=== PATIENT | male | born 1960 | race Caucasian/White ===

== ENCOUNTER 2017-12-03 21:33 | Observation (INO) ==
[2017-12-03] MEDS ORDERED: Naloxone 0.4 MG/ML INJ IVP PRN (23:41)
[2017-12-03] MEDS ORDERED: Ibuprofen 400 MG TABLET PO PRN (23:41)
[2017-12-03] MEDS ORDERED: Isovue-370 500 ML INFUS..BTL IV ONE (23:42)
[2017-12-03] MEDS ORDERED: OXYCODONE Oral CONC 10 MG/0.5 ML ORAL.SYG SL PRN (23:44)
[2017-12-03] MEDS ORDERED: Ketorolac 30 MG/ML VIAL IVP ONE (23:44)
[2017-12-04] MEDS ORDERED: levETIRAcetam 750 MG in 0.9 % Sodium Chloride 100 ML IVPB ONE (00:13)
--- NOTE | 2017-12-04 00:13 | Internal Med History&Physical ---
Addendum entered and electronically signed by Tani Burton DO 12/04/17 00: 57: Addendum to A/P At this time not highly suspicious of SBP considering patient is afebrile and has no leukocytosis. Based on imaging, may consider paracentesis with IR, and empiric antibiotics if needed. Original Note: <Tani Burton - Last Filed: 12/04/17 00:16> Date of Encounter: 12/04/17 Time of Encounter: 23:45 Internal Medicine - H&P: HPI Chief complaint: Abdominal pain Admitted From: Emergency Dept ([facility]) Plans for Post Hospital Care: Home History of present illness: Mr. Nunez is a 57 year old male with history of hepatitis C, COPD, GERD, hyperlipidemia, hypertension, migraines and seizures who presented to [place] ED complaining of right upper quadrant pain of a couple of weeks' duration. He says that this pain initially started a couple of weeks back following a day where he drank a significant amount of alcohol. He does have a history of alcoholism as well as substantial drug use including IV drug use, however he apparently stopped drinking for the most part 3-4 months back. He says that couple of weeks ago he had one episode where he drink a substantial amount of alcohol and since that time he has been developing substantially worsening abdominal pain and swelling. He was seen initially in the ER approximately 2 days ago and at that time he had an abdominal CT which did not demonstrate any ascites or intra-abdominal abnormalities, however was noncontrast at that time. The patient has apparently had significantly worsening abdominal pain which is primarily the worst in the right upper quadrant with radiation towards the back. The pain is 8-9 out of 10 in intensity and is constant. It is associated with nausea however there is no vomiting. He has had some chills and some sweats, however denies any documented fevers to his knowledge. The patient has been able to eat and hold food down. He denies any changes in the color of his skin, itching, changes in mental status. He does admit to substantial swelling in his abdomen with appearance of stretch olivarez which happened today. Nothing seems to make this pain any better. Past Med Surg Social Fam HX - Past Medical History Medical history: arthritis, COPD, GERD, hyperlipidemia, hypertension, liver disease, migraine, seizures, other Additional medical history: HEP C Psychiatric history: anxiety, depression, panic disorder - Past Surgical History Surgical History: orthopedic, other (Right shoulder replacement), other (Throat surgery) Additional surgical history: Rt Shoulder - Social History Smoking Status: Current every day smoker Packs per day: 1/ Smokeless Tobacco Status: No Alcohol use: occasionally Drug use: none Internal Medicine - H&P: Meds FLUoxetine HCl [Prozac] 60 mg PO DAILY 11/26/14 [History] LevETIRAcetam [Keppra] 750 mg PO BID 11/26/14 [History] Lisinopril [Zestril] 20 mg PO DAILY 11/26/14 [History] Propranolol HCl 20 mg PO TID 11/26/14 [History] diazePAM [Valium] 5 mg PO DAILY 06/23/15 [History] Albuterol Neb [Proventil Neb] 2.5 mg IH Q6H #1 vial.neb 02/20/17 [Rx] Lactulose 20 gm PO TID #2700 ml 12/01/17 [Rx] Mirtazapine [Remeron] 30 mg PO HS 12/01/17 [History] Oxycodone HCl 5 mg PO QID PRN 3 Days #12 tablet 12/01/17 [Rx] 3 Allergy/AdvReac Type Severity Reaction Status Date / Time Penicillins AdvReac Difficulty Verified 02/20/17 22:54 Breathing tramadol AdvReac Seizure Verified 02/20/17 22:54 All Systems PM: A 10-system review of systems was performed and is negative for pertinent findings except as documented above in the HPI. Review of systems: Constitutional: Denies fevers, chills, weight loss, generalized fatigue Head/Neck: Denies LYNN, neck stiffness EENT: Denies vision changes/blurriness, rhinorrhea, congestion, sore throat CVS: Denies chest pain, palpitations, BELLO, orthopnea, edema, PND Pulm: Denies SOB, cough, sputum, hemoptysis, wheezing GI: Admits to abdominal pain, worse in the right upper quadrant. Admits to nausea, abdominal distention. Denies vomiting, constipation, diarrhea, hematochezia, melena. : Denies dysuria, increased frequency, urgency, hematuria Heme: Denies ease of bleeding or bruising MSK: Denies joint pain, limited ROM Skin: Denies rashes, ulcers, color changes Neuro: Denies LYNN, paresthesias, focal deficits, ataxia - Constitutional Exam: Gen: Vitals noted. No acute distress. AAOx3 HEENT: Normocephalic, atraumatic. No scleral icterus Neck: Supple. No adenopathy. Cardiac: RRR, no murmur, +S1/S2 Pulmonary: CTA bilaterally, no wheezes, rales or rhonchi, equal chest expansion Abdomen: Markedly distended, tender to palpation diffusely, however most notably tender in right upper quadrant. No fluid wave noted. Guarding noted on exam Skin: Erythematous striae noted on abdomen which patient says are new. No jaundice Extremities: no BLE edema, nontender calf, no cyanosis or clubbing Neuro: moves all extremities, no focal deficits Psych: Appropriate mood and behavior - Assessment and plan (1) Abdominal pain Current Visit: Yes Status: Acute Assessment and plan: Severe right upper quadrant abdominal pain, acute Patient had abdominal CT without contrast 2 days ago There is firm distended abdomen on exam, no repeat imaging at this time Patient states this started after drinking large amounts of alcohol several weeks ago Suspected alcoholic hepatitis could be possible cause vs pancreatitis vs gb pathology CT Abdomen pelvis with contrast, right upper quadrant US If there is substantial ascites present, plan for IR consult for paracentesis in the AM Control pain with SL oxycodone Control nausea with zofran NPO Qualifiers: Abdominal location: right upper quadrant Qualified Code(s): R10.11 - Right upper quadrant pain (2) Hepatitis Current Visit: Yes Status: Suspected Assessment and plan: Hepatitis, suspect acute on chronic Patient has recent history of excessive alcohol intake, which initiated pain LFTs are currently normal, INR and Albumin are also normal indicating normal liver function There was no evidence of cirrhosis on last CT We will repeat imaging and re-evaulate (3) Seizure disorder Current Visit: No Status: Chronic Assessment and plan: History of seizures, on keppra Will continue IV as patient is NPO Additionally, patient will be placed on CIWA protocol (4) Alcohol abuse Current Visit: Yes Status: Chronic Assessment and plan: History of alcohol abuse Patient states that it has been weeks, however his story is not totally consistent Additionally, he has a history of seizure disorder for which he takes keppra I will place the patient on a CIWA protocol (5) Hepatitis C Current Visit: Yes Status: Chronic Assessment and plan: history of chronic hepatitis C Qualifiers: Viral hepatitis chronicity: chronic Hepatic coma status: without hepatic coma Qualified Code(s): B18.2 - Chronic viral hepatitis C (6) Hypertension Current Visit: No Status: Acute Assessment and plan: History of hypertension Will monitor at this time PO meds held at this time, PRN IV meds ordered Qualifiers: Hypertension type: essential hypertension Qualified Code(s): I10 - Essential (primary) hypertension (7) DVT prophylaxis Current Visit: Yes Status: Acute Assessment and plan: SQ Heparin - Time Spent With Patient Total time spent is greater than 50% in coordination of care (as documented) at patient's floor/unit and/or counseling patient: <Hanh Flores - Last Filed: 12/04/17 01:04> Date of Encounter: 12/03/17 Internal Medicine - H&P: HPI History of present illness: Mr. Nunez is a 57 year old male All Systems PM: A 10-system review of systems was performed and is negative for pertinent findings except as documented above in the HPI. - Assessment and plan (1) Hypertension Current Visit: No Status: Acute Qualifiers: Hypertension type: essential hypertension Qualified Code(s): I10 - Essential (primary) hypertension (2) Hepatitis Current Visit: Yes Status: Suspected (3) Abdominal pain Current Visit: Yes Status: Acute Qualifiers: Abdominal location: right upper quadrant Qualified Code(s): R10.11 - Right upper quadrant pain (4) Seizure disorder Current Visit: No Status: Chronic (5) Alcohol abuse Current Visit: Yes Status: Chronic (6) Hepatitis C Current Visit: Yes Status: Chronic Qualifiers: Viral hepatitis chronicity: chronic Hepatic coma status: without hepatic coma Qualified Code(s): B18.2 - Chronic viral hepatitis C (7) DVT prophylaxis Current Visit: Yes Status: Acute - Time Spent With Patient Total time spent is greater than 50% in coordination of care (as documented) at patient's floor/unit and/or counseling patient: - Attending Attestation Patient seen on 12/03/17 Niels Nunez is a 57 year old man with multiple comorbidities that includes arthritis, COPD, GERD, hyperlipidemia, hypertension, hepatitis C associated liver disease who comes here on transfer from [place] emergency room where he went to for the second time in the last 2 days with a complaint of abdominal pain and distention. On his initial encounter a CT scan was done to assess for ascites however it was completely negative with no organic abnormalities found. He presented again today stating that his distention had notably worse and an abdominal pain was excruciating during IV fentanyl administration in the emergency room. It is reported that CT capabilities are not possible there today and therefore is transferred here for ongoing evaluation in the setting of intractable abdominal pain of unclear etiology. He stated that he feels his abdomen is now very tight and has developed new stretch olivarez from the distention accompanied by some feeling of nausea and chills. Of note he takes lactulose at home chronically. He was afebrile in the emergency room and lab work done was grossly unremarkable both today and 2 days ago with the normal serum lipase, stable creatinine and minimal elevation in ALT. On presentation here he seemed to be clinically and hemodynamically stable. Family members at bedside confirms that he has a history of substance use disorder which is now in the past but ongoing problems with alcohol in addition to hepatitis C. They state that he was sober for 3 months however he now relapsed into alcohol 2 weeks ago after which this problem with abdominal pain started but has progressively worsened in the last couple of days. They equally confirm that the abdominal stretch olivarez and distention is new but state that he has not been on chronic lactulose and it was only started 2 days ago with his prior visit to the emergency room. He confirms that his urine is darker in color but he denies dysuria. He is able to pass gas and moving his bowels without diarrhea. He also complains of nausea but no vomiting and occasional night sweats and chills but no confirmed fever. Physical exam remarkable for well-developed male lying in bed with mild discomfort, chest clear to auscultation, abdomen notably distended with red striae over the anterior wall, tympanic to percussion and diffusely tender to palpation lumbar predominantly in the epigastrium and right upper quadrant with no peritoneal reaction. No shifting dullness. No asterixis. No peripheral edema. We will admit for intractable abdominal pain of unclear etiology; concern for alcoholic hepatitis given the history that it started after his last alcohol binge. Discriminant factor not positive. Pancreatitis unlikely given the normal lipase and no apparent peripancreatic inflammatory findings on CT. Acute hep A ruled out with the nonreactive IgM done 2 days ago. His LFTs are not significantly elevated however with normal INR, ammonia and albumin showing that the synthetic function of the liver remains intact. We will obtain a contrast enhanced CT imaging of his abdomen to rule out any inflammatory findings. He will also benefit from a dedicated liver ultrasound to assess for perihepatic edema. Should be plugged in with hepatology as an outpatient for treatment of chronic hep C.
[2017-12-04] MEDS ORDERED: *HR* LORazepam 2 MG/ML VIAL IVP PRN ×3 (00:18)
[2017-12-04] MEDS ORDERED: Ondansetron 4 MG/2 ML VIAL IVP PRN (00:38)
[2017-12-04 04:21] LABS: Basophils # 0.1 K/mcL (0.0-0.2); Basophils % 0.8 %; Eosinophils # 0.4 K/mcL (0.0-0.6); Eosinophils % 4.8 %; Hemoglobin 15.2 g/dL (12.9-16.9); Immature Granulocytes % 0.3 % (0-4); Lymphocytes # 3.7 K/mcL (0.6-4.6); Lymphocytes % 46.7 %; Mean Corpuscular HGB Conc 35.3 g/dL (31.6-35.5); Mean Corpuscular Hemoglobin 32.5 pg (28.0-33.3); Mean Corpuscular Volume 92.1 fL (83.0-100.0); Mean Platelet Volume 9.2 fL (9.4-12.4); Monocytes # 1.1 K/mcL (0.0-1.3); Monocytes % 13.2 %; Neutrophils # 2.7 K/mcL (1.6-8.9); Platelet Count 198 K/mcL (140-400); Red Blood Count 4.67 M/mcL (4.19-5.50); Red Cell Distribution Width 12.8 % (11.5-14.5); Segmented Neutrophils % 34.2 %
[2017-12-04 04:37] LABS: Alanine Aminotransferase 54 Units/L (7-52); Albumin 3.9 g/dL (3.5-5.7); Albumin/Globulin Ratio 1.7 (1.1-2.2); Alkaline Phosphatase 95 Units/L (34-104); Aspartate Amino Transferase 31 Units/L (13-39); BUN/Creatinine Ratio 20 (6-26); Bilirubin,Total 0.6 mg/dL (0.3-1.0); Blood Urea Nitrogen 21 mg/dL (6-20); Calcium 8.9 mg/dL (8.6-10.3); Carbon Dioxide 27 mEq/L (23-29); Chloride 100 mEq/L (98-107); Globulin 2.3 g/dL (2.4-3.5); Glucose 92 mg/dL (70-105); Magnesium 1.9 mg/dL (1.6-2.6); Osmolality,Calculated 277 (280-300); Sodium 132 mEq/L (136-145); Total Protein 6.2 g/dL (6.4-8.9); eGFR For Non-African Americans > 60 (> 60)
[2017-12-04] MEDS ORDERED: *HR* Heparin 5,000 UNIT/ML VIAL SQ SCH (06:00)
[2017-12-04] MEDS ORDERED: levETIRAcetam 250 MG TABLET PO SCH ×2 (06:00→11:45)
[2017-12-04] MEDS ORDERED: *HR* Morphine 2 MG/ML SYRINGE IVP PRN (08:09)
[2017-12-04] MEDS ORDERED: Folic Acid 1 MG TABLET PO SCH (09:00)
[2017-12-04] MEDS ORDERED: Thiamine (B-1) 100 MG TABLET PO SCH (09:00)
[2017-12-04] MEDS ORDERED: Multivit/Ca/Min/Fe/FA 1 TAB TABLET PO SCH (09:00)
--- NOTE | 2017-12-04 09:08 | Internal Med Progress Note ---
Hospitalist Progress Note - Encounter Date of Encounter: 12/04/17 Time of Encounter: 09:00 - Exam Vitals: Temp Pulse Resp BP Pulse Ox 97.7 F 60 16 104/67 97 12/04/17 07:10 12/04/17 07:10 12/04/17 07:10 12/04/17 07:10 12/04/17 07:10 Exam: Gen: Vitals noted. No acute distress. AAOx3 HEENT: Normocephalic, atraumatic. No scleral icterus Neck: Supple. No adenopathy. Cardiac: RRR, no murmur, +S1/S2 Pulmonary: CTA bilaterally, no wheezes, rales or rhonchi, equal chest expansion Abdomen: Markedly distended, tender to palpation diffusely, however most notably tender in right upper quadrant. No fluid wave noted. Guarding noted on exam Skin: Erythematous striae noted on abdomen which patient says are new. No jaundice Extremities: no BLE edema, nontender calf, no cyanosis or clubbing Neuro: moves all extremities, no focal deficits Psych: Appropriate mood and behavior - Assessment and Plan (1) Abdominal pain Status: Acute Assessment and Plan: Resolving. CT and abd ultrasound came back WNL (2) Hypertension Status: Acute Assessment and Plan: History of hypertension Will monitor at this time PO meds held at this time, PRN IV meds ordered (3) Hepatitis Status: Suspected Assessment and Plan: Hepatitis, suspect acute on chronic Patient has recent history of excessive alcohol intake, which initiated pain LFTs are currently normal, INR and Albumin are also normal indicating normal liver function There was no evidence of cirrhosis on last CT We will repeat imaging and re-evaulate (4) Seizure disorder Status: Chronic Assessment and Plan: History of seizures, on keppra Will continue IV as patient is NPO Additionally, patient will be placed on CIWA protocol (5) Alcohol abuse Status: Chronic Assessment and Plan: History of alcohol abuse Patient states that it has been weeks, however his story is not totally consistent Additionally, he has a history of seizure disorder for which he takes keppra I will place the patient on a CIWA protocol (6) Hepatitis C Status: Chronic Assessment and Plan: history of chronic hepatitis C (7) DVT prophylaxis Status: Acute Assessment and Plan: SQ Heparin - Time Spent with Patient Total time spent is greater than 50% in coordination of care (as documented) at patient's floor/unit and/or counseling patient: Internal Medicine: Result - Labs CBC & Chem 7: 12/04/17 04:01 12/04/17 04:01 Labs: Short CBC 12/04/17 Range/Units 04:01 WBC 7.9 (4.3-11.1) K/mcL Hgb 15.2 (12.9-16.9) g/dL Hct 43.0 (37.5-50.1) % Plt Count 198 (140-400) K/mcL Neutrophils # 2.7 (1.6-8.9) K/mcL BMP 12/04/17 04:01 Sodium 132 L Potassium 4.0 Chloride 100 Carbon Dioxide 27 BUN 21 H Creatinine 1.03 Glucose 92 Calcium 8.9 Liver Function 12/04/17 Range/Units 04:01 Total Bilirubin 0.6 (0.3-1.0) mg/dL AST 31 (13-39) Units/L ALT 54 H (7-52) Units/L Alkaline Phosphatase 95 (34-104) Units/L Albumin 3.9 (3.5-5.7) g/dL - Impressions Impressions Abdomen/Pelvis CT 12/04/17 02:00 IMPRESSION: No acute findings in the abdomen or pelvis. D/ 12/04/2017 07:17:20 Awilda Franco MD / franky Interpreting Provider: Awilda Franco MD Consult Discharge Plan - Plan Referrals: Awilda Hewitt, [place] [Primary Care Provider] - (1) Abdominal pain Qualifiers: Abdominal location: right upper quadrant Qualified Code(s): R10.11 - Right upper quadrant pain (2) Hypertension Qualifiers: Hypertension type: essential hypertension Qualified Code(s): I10 - Essential (primary) hypertension (6) Hepatitis C Qualifiers: Viral hepatitis chronicity: chronic Hepatic coma status: without hepatic coma Qualified Code(s): B18.2 - Chronic viral hepatitis C
[2017-12-04 10:07] LABS: Amphetamine Screen,Urine Negative ng/mL (Cutoff=1000); Barbiturate Screen,Urine Negative ng/mL (Cutoff=200); Benzodiazepines Screen,Urine Positive ng/mL (Cutoff=200); Cannabinoid Screen,Urine Negative ng/mL (Cutoff = 50); Cocaine Screen,Urine Negative ng/mL (Cutoff= 300); Opiate Screen,Urine Positive ng/mL (Cutoff=300); Phencyclidine Screen,Urine Negative ng/mL (Cutoff=25)
[2017-12-04 10:44] VITALS: BP 106/67
--- NOTE | 2017-12-04 11:57 | Discharge Summary ---
Date of Encounter: 12/04/17 Time of Encounter: 11:55 - Discharge Diagnosis (1) Abdominal pain Priority: Primary Status: Acute Assessment and Plan: 57 year old male with history of hepatitis C, COPD, GERD, hyperlipidemia, hypertension, migraines and seizures who presented to [place] ED complaining of right upper quadrant pain of a couple of weeks' duration. He says that this pain initially started a couple of weeks back following a day where he drank a significant amount of alcohol. He does have a history of alcoholism as well as substantial drug use including IV drug use, however he apparently stopped drinking for the most part 3-4 months back. Severe right upper quadrant abdominal pain, acute after one day of excessive alcohol consumption Patient had abdominal CT without contrast 2 days ago that showed no acute abnormalities. He came back with abdominal distention and abdominal pain. he ahd a CT abdomen and ultrasound that came back within normal limits. His common bile duct was however slightly widened in diameter at 8mm. Discussed with GI,no acute intervention. Outpatient follow up. Alk phos was within normal limits and his other LFTs were WNL. He was discharged in a stable condition. Counseled to stop drinking alcohol Qualifiers: Abdominal location: right upper quadrant Qualified Code(s): R10.11 - Right upper quadrant pain (2) Hypertension Priority: Primary Status: Acute Qualifiers: Hypertension type: essential hypertension Qualified Code(s): I10 - Essential (primary) hypertension (3) Hepatitis Priority: Secondary Status: Suspected (4) Seizure disorder Priority: Secondary Status: Chronic (5) Alcohol abuse Priority: Secondary Status: Chronic (6) Hepatitis C Priority: Secondary Status: Chronic Qualifiers: Viral hepatitis chronicity: chronic Hepatic coma status: without hepatic coma Qualified Code(s): B18.2 - Chronic viral hepatitis C (7) DVT prophylaxis Priority: Secondary Status: Acute Hospital course: Mr. Nunez is a 57 year old male - Time Spent with Patient Total time spent providing and/or coordinating discharge services: - Discharge Medications Home Medications: FLUoxetine HCl [Prozac] 60 mg PO DAILY 11/26/14 [History] LevETIRAcetam [Keppra] 750 mg PO BID 11/26/14 [History] Propranolol HCl 20 mg PO TID 11/26/14 [History] diazePAM [Valium] 5 mg PO DAILY 06/23/15 [History] Lactulose 20 gm PO TID #2700 ml 12/01/17 [Rx] Mirtazapine [Remeron] 30 mg PO HS 12/01/17 [History] Oxycodone HCl 5 mg PO QID PRN 3 Days #12 tablet 12/01/17 [Rx] Ibuprofen [Ibu] 600 mg PO TID PRN 12/04/17 [History] Lisinopril-HCTZ 20-12.5 [Prinzide 20-12.5] 1 tab PO DAILY 12/04/17 [History] Allergies/Adverse Reactions: 3 Allergy/AdvReac Type Severity Reaction Status Date / Time Penicillins AdvReac Difficulty Verified 02/20/17 22:54 Breathing tramadol AdvReac Seizure Verified 02/20/17 22:54 Date of admission: 12/03/17 22:54 Primary care physician: Awilda Hewitt - Constitutional Vitals: Temp Pulse Resp BP Pulse Ox 97.7 F 64 16 106/67 98 12/04/17 10:42 12/04/17 10:42 12/04/17 10:42 12/04/17 10:42 12/04/17 10:42 Exam: Gen: Vitals noted. No acute distress. AAOx3 HEENT: Normocephalic, atraumatic. No scleral icterus Neck: Supple. No adenopathy. Cardiac: RRR, no murmur, +S1/S2 Pulmonary: CTA bilaterally, no wheezes, rales or rhonchi, equal chest expansion Abdomen: Markedly distended, tender to palpation diffusely, however most notably tender in right upper quadrant. No fluid wave noted. Guarding noted on exam Skin: Erythematous striae noted on abdomen which patient says are new. No jaundice Extremities: no BLE edema, nontender calf, no cyanosis or clubbing Neuro: moves all extremities, no focal deficits Psych: Appropriate mood and behavior - Patient Status Disposition: Home, Self-Care Condition: Good - Discharge Instructions Follow Up With: Awilda Hewitt, [facility] [Primary Care Provider] -
[2017-12-04] MEDS ORDERED: Thiamine (B-1) 100 MG, Folic Acid 1 MG, MVI, adult with vitamin K 10 ML in 0.9 % Sodi... IVPB SCH (18:00)
[2017-12-04] MEDS ORDERED: Mirtazapine 15 MG TABLET PO SCH (21:00)
[2017-12-05] MEDS ORDERED: FLUoxetine 20 MG CAPSULE PO SCH (09:00)
[2017-12-05] MEDS ORDERED: Lisinopril-HCTZ 20-12.5mg TABLET PO SCH (09:00)
== END 2017-12-04 12:54 | disposition home or self-care (01) ==
LOC: 3ANU
PROVIDERS: ADMIT Internal Medicine; ATTEND Internal Medicine

== ENCOUNTER 2020-08-31 16:37 | Inpatient (IN) ==
[2020-08-31] MEDS ORDERED: *HR* FentaNYL (PF) 100 MCG/2 ML VIAL IVP ONE ×2 (17:51→20:23)
[2020-08-31 18:19] LABS: Basophils % 0.4 %; Eosinophils # 0.2 K/mcL (0.0-0.6); Eosinophils % 2.6 %; Hematocrit 38.1 % (37.5-50.1); Hemoglobin 13.5 g/dL (12.9-16.9); Immature Granulocytes % 0.7 % (0-4); Mean Corpuscular HGB Conc 35.4 g/dL (31.6-35.5); Mean Corpuscular Volume 87.4 fL (83.0-100.0); Mean Platelet Volume 8.4 fL (9.4-12.4); Monocytes # 0.7 K/mcL (0.0-1.3); Monocytes % 7.6 %; Neutrophils # 5.9 K/mcL (1.6-8.9); Platelet Count 514 K/mcL (140-400); Red Blood Count 4.36 M/mcL (4.19-5.50); Red Cell Distribution Width 12.8 % (11.5-14.5); Segmented Neutrophils % 66.7 %; White Blood Count 8.9 K/mcL (4.3-11.1)
[2020-08-31 18:37] LABS: Bilirubin,Urine Negative (Negative); Blood,Urine Negative (Negative); Clarity,Urine Clear (Clear); Color,Urine Light-Yellow (Yellow); Glucose,Urine (UA) Normal (Normal); Ketones,Urine Negative (Negative); Leukocyte Esterase,Urine Negative (Negative); Nitrite,Urine Negative (Negative); Protein,Urine Negative (Neg-Trace); Specific Gravity,Urine 1.013 (1.010-1.025); Urobilinogen,Urine Normal (Normal)
[2020-08-31 18:59] LABS: BUN/Creatinine Ratio 14 (6-26); Blood Urea Nitrogen 10 mg/dL (8-23); C-Reactive Protein 30 mg/L (Less than 10); Calcium 9.1 mg/dL (8.6-10.3); Carbon Dioxide 21 mEq/L (23-29); Chloride 98 mEq/L (98-107); Glucose 98 mg/dL (70-105); Magnesium 1.7 mg/dL (1.6-2.6); Osmolality,Calculated 271 (280-300); Phosphorous 2.9 mg/dL (2.7-4.5); Potassium 3.6 mEq/L (3.5-5.1); Sodium 131 mEq/L (136-145); eGFR For African Americans > 60 (> 60); eGFR For Non-African Americans > 60 (> 60)
[2020-08-31] MEDS ORDERED: Ondansetron 4 MG/2 ML VIAL IVP ONE (20:23)
[2020-08-31] MEDS ORDERED: Vancomycin 1,750 MG/517.5 ML IV.SOLN IVPB ONE (22:17)
[2020-08-31 22:36] LABS: Source,Synovial Fluid RIGHT SHOULDER
[2020-08-31 22:39] LABS: Appearance,Synovial Fluid Cloudy (Clear-Hazy); Color,Synovial Fluid Straw (Straw)
[2020-08-31] MEDS ORDERED: Cefepime HCl 2,000 MG in 0.9 % Sodium Chloride Mini Bag 100 ML IVPB ONE (22:45)
[2020-08-31 23:36] LABS: Lymphocytes,Synovial Fluid 0 %
[2020-09-01] MEDS ORDERED: Ondansetron 4 MG/2 ML VIAL IVP PRN (00:29)
[2020-09-01] MEDS ORDERED: Naloxone 0.4 MG/ML INJ IVP PRN (00:29)
[2020-09-01] MEDS ORDERED: Melatonin 3 MG TABLET PO PRN (00:29)
[2020-09-01] MEDS ORDERED: Acetaminophen 325 MG TABLET PO PRN (00:29)
[2020-09-01 04:04] LABS: Basophils % 0.5 %; Eosinophils # 0.2 K/mcL (0.0-0.6); Eosinophils % 2.6 %; Hematocrit 36.5 % (37.5-50.1); Hemoglobin 12.6 g/dL (12.9-16.9); Immature Granulocytes % 0.6 % (0-4); Lymphocytes # 1.9 K/mcL (0.6-4.6); Lymphocytes % 22.5 %; Mean Corpuscular HGB Conc 34.5 g/dL (31.6-35.5); Mean Corpuscular Volume 86.9 fL (83.0-100.0); Mean Platelet Volume 8.1 fL (9.4-12.4); Monocytes # 0.7 K/mcL (0.0-1.3); Monocytes % 8.6 %; Neutrophils # 5.6 K/mcL (1.6-8.9); Platelet Count 462 K/mcL (140-400); Red Cell Distribution Width 12.9 % (11.5-14.5); Segmented Neutrophils % 65.2 %; White Blood Count 8.6 K/mcL (4.3-11.1)
[2020-09-01 04:15] LABS: Activated Partial Thrombo Time 32.1 Seconds (26.0-36.0); INR 1.2; Prothrombin Time 13.8 Seconds (9.4-12.1)
[2020-09-01 04:26] LABS: Alanine Aminotransferase 21 Units/L (7-52); Albumin 3.6 g/dL (3.5-5.7); Albumin/Globulin Ratio 1.2 (1.1-2.2); Alkaline Phosphatase 90 Units/L (34-104); Aspartate Amino Transferase 17 Units/L (13-39); BUN/Creatinine Ratio 11 (6-26); Bilirubin,Total 0.4 mg/dL (0.3-1.0); Blood Urea Nitrogen 9 mg/dL (8-23); Calcium 9.1 mg/dL (8.6-10.3); Carbon Dioxide 25 mEq/L (23-29); Chloride 101 mEq/L (98-107); Globulin 3.1 g/dL (2.4-3.5); Glucose 104 mg/dL (70-105); Osmolality,Calculated 273 (280-300); Phosphorous 3.1 mg/dL (2.7-4.5); Potassium 3.8 mEq/L (3.5-5.1); Sodium 132 mEq/L (136-145); Total Protein 6.7 g/dL (6.4-8.9); eGFR For African Americans > 60 (> 60); eGFR For Non-African Americans > 60 (> 60)
[2020-09-01] MEDS: Cefepime HCl 2,000 MG in Water for inj. (sterile) 20 ML IVP SCH ×2 (08:59→22:13)
[2020-09-01] MEDS: Vancomycin 1,250 MG/262.5 ML IV.SOLN IVPB SCH ×2 (11:49→22:15)
[2020-09-01] MEDS: levETIRAcetam 250 MG TABLET PO SCH (22:14)
[2020-09-02] MEDS ORDERED: Albuterol 2.5 MG/3 ML NEBULIZER IH PRN ×2 (03:05→15:35)
[2020-09-02] MEDS ORDERED: Ondansetron ODT 4 MG TAB.RAPDIS PO PRN (03:05)
[2020-09-02 04:49] LABS: Basophils % 0.6 %; Eosinophils # 0.2 K/mcL (0.0-0.6); Eosinophils % 2.6 %; Hematocrit 36.1 % (37.5-50.1); Hemoglobin 12.4 g/dL (12.9-16.9); Immature Granulocytes % 0.6 % (0-4); Lymphocytes # 1.7 K/mcL (0.6-4.6); Lymphocytes % 24.1 %; Mean Corpuscular HGB Conc 34.3 g/dL (31.6-35.5); Mean Corpuscular Hemoglobin 29.8 pg (28.0-33.3); Mean Corpuscular Volume 86.8 fL (83.0-100.0); Mean Platelet Volume 8.2 fL (9.4-12.4); Monocytes # 0.9 K/mcL (0.0-1.3); Monocytes % 12.5 %; Neutrophils # 4.2 K/mcL (1.6-8.9); Platelet Count 440 K/mcL (140-400); Red Blood Count 4.16 M/mcL (4.19-5.50); Red Cell Distribution Width 12.9 % (11.5-14.5); Segmented Neutrophils % 59.6 %
[2020-09-02 05:07] LABS: BUN/Creatinine Ratio 11 (6-26); Blood Urea Nitrogen 9 mg/dL (8-23); Carbon Dioxide 23 mEq/L (23-29); Chloride 98 mEq/L (98-107); Glucose 101 mg/dL (70-105); Osmolality,Calculated 271 (280-300); Potassium 3.9 mEq/L (3.5-5.1); Sodium 131 mEq/L (136-145); eGFR For African Americans > 60 (> 60); eGFR For Non-African Americans > 60 (> 60)
[2020-09-02] MEDS: Budesonide/Formoterol 160/4.5 1 PUFF INH IH SCH ×2 (07:35→20:04)
[2020-09-02] MEDS: Lisinopril-HCTZ 20-12.5mg TABLET PO SCH (09:26)
[2020-09-02] MEDS: FLUoxetine 20 MG CAPSULE PO SCH (09:27)
[2020-09-02] MEDS: levETIRAcetam 250 MG TABLET PO SCH ×2 (09:27→20:30)
[2020-09-02] MEDS: Cefepime HCl 2,000 MG in Water for inj. (sterile) 20 ML IVP SCH ×2 (09:30→22:37)
[2020-09-02] MEDS ORDERED: Hydrogen Peroxide 3% (Sterile) 473 ML SOLUTION IR ONE (12:15)
[2020-09-02] MEDS ORDERED: Ertapenem 1,000 MG in 0.9 % Sodium Chloride Mini Bag 100 ML IVPB SCH (14:00)
[2020-09-02 15:03] LABS: Amphetamine Screen,Urine Negative ng/mL (Cutoff=1000); Barbiturate Screen,Urine Negative ng/mL (Cutoff=200); Benzodiazepines Screen,Urine Negative ng/mL (Cutoff=200); Cannabinoid Screen,Urine Negative ng/mL (Cutoff = 50); Cocaine Screen,Urine Negative ng/mL (Cutoff= 300); Opiate Screen,Urine Negative ng/mL (Cutoff=300); Phencyclidine Screen,Urine Negative ng/mL (Cutoff=25)
[2020-09-02] MEDS ORDERED: *HR* HYDROmorphone (PF) 1 MG/ML SYRINGE IVP PRN (15:35)
[2020-09-02] MEDS ORDERED: Ondansetron 4 MG/2 ML VIAL IVP PRN ×2 (15:35→18:38)
[2020-09-02] MEDS ORDERED: Nitroglycerin 0.4 MG TAB.SUBL SL PRN (15:35)
[2020-09-02] MEDS ORDERED: *HR* FentaNYL (PF) 100 MCG/2 ML VIAL IVP PRN (15:35)
[2020-09-02] MEDS ORDERED: Naloxone 0.4 MG/ML INJ IVP PRN (15:35)
[2020-09-02] MEDS ORDERED: *HR* Midazolam HCl 2 MG/2 ML VIAL ONE (15:51)
[2020-09-02] MEDS ORDERED: *HR* Propofol 200 MG/20 ML VIAL IVP ONE (15:51)
[2020-09-02] MEDS ORDERED: Tobramycin Sulf (Sterile) 1.2 GM VIAL ONE (15:52)
[2020-09-02] MEDS ORDERED: Lidocaine -MPF 2% 2 ML VIAL ONE (15:52)
[2020-09-02] MEDS ORDERED: Vancomycin 1,000 MG VIAL ONE (15:53)
[2020-09-02] MEDS ORDERED: *HR* FentaNYL (PF) 100 MCG/2 ML VIAL ONE (17:16)
[2020-09-02] MEDS ORDERED: EPHEDrine 50 MG/ML VIAL ONE (17:19)
[2020-09-02] MEDS ORDERED: *HR* Vasopressin 20 UNIT/ML VIAL ONE (17:33)
[2020-09-02] MEDS ORDERED: Ondansetron 4 MG/2 ML VIAL ONE (18:09)
[2020-09-02] MEDS ORDERED: *HR* OxyCODONE Immed Rel 5 MG TABLET PO PRN (18:38)
[2020-09-02] MEDS ORDERED: Sennosides 8.6 MG TABLET PO PRN (18:38)
[2020-09-02] MEDS ORDERED: MOM Conc 10 ML UD.LIQ PO PRN (18:38)
[2020-09-02] MEDS ORDERED: Ringers Solution, Lactated 1,000 ML IVC SCH (18:45)
[2020-09-02] MEDS: Ketorolac 15 MG/ML VIAL IVP PRN (20:30)
[2020-09-03] MEDS ORDERED: Povidone-Iodine 45 ML, Sodium Chloride IRRigation 1,000 ML IR ONE (06:00)
[2020-09-03] MEDS: Budesonide/Formoterol 160/4.5 1 PUFF INH IH SCH ×2 (08:24→20:28)
[2020-09-03] MEDS: Lisinopril-HCTZ 20-12.5mg TABLET PO SCH (08:25)
[2020-09-03] MEDS: levETIRAcetam 250 MG TABLET PO SCH ×2 (08:26→20:08)
[2020-09-03] MEDS: FLUoxetine 20 MG CAPSULE PO SCH (08:26)
[2020-09-03] MEDS: Cefepime HCl 2,000 MG in Water for inj. (sterile) 20 ML IVP SCH ×2 (08:28→21:40)
[2020-09-03 10:54] LABS: Basophils % 0.1 %; Immature Granulocytes % 0.4 % (0-4); Lymphocytes # 0.7 K/mcL (0.6-4.6); Lymphocytes % 8.2 %; Mean Corpuscular HGB Conc 34.5 g/dL (31.6-35.5); Mean Corpuscular Hemoglobin 30.3 pg (28.0-33.3); Mean Corpuscular Volume 87.9 fL (83.0-100.0); Mean Platelet Volume 8.5 fL (9.4-12.4); Monocytes # 0.6 K/mcL (0.0-1.3); Monocytes % 6.9 %; Neutrophils # 7.6 K/mcL (1.6-8.9); Platelet Count 380 K/mcL (140-400); Red Cell Distribution Width 13.1 % (11.5-14.5); Segmented Neutrophils % 84.4 %
[2020-09-03 11:17] LABS: BUN/Creatinine Ratio 18 (6-26); Blood Urea Nitrogen 13 mg/dL (8-23); Calcium 8.3 mg/dL (8.6-10.3); Carbon Dioxide 23 mEq/L (23-29); Chloride 94 mEq/L (98-107); Glucose 161 mg/dL (70-105); Osmolality,Calculated 268 (280-300); Potassium 4.3 mEq/L (3.5-5.1); Sodium 127 mEq/L (136-145); eGFR For African Americans > 60 (> 60); eGFR For Non-African Americans > 60 (> 60)
[2020-09-03] MEDS: Ketorolac 15 MG/ML VIAL IVP PRN ×2 (14:54→21:48)
[2020-09-04 03:13] LABS: Basophils % 0.3 %; Eosinophils # 0.1 K/mcL (0.0-0.6); Eosinophils % 1.2 %; Hematocrit 28.8 % (37.5-50.1); Hemoglobin 9.7 g/dL (12.9-16.9); Immature Granulocytes % 0.6 % (0-4); Lymphocytes # 2.5 K/mcL (0.6-4.6); Lymphocytes % 26.4 %; Mean Corpuscular HGB Conc 33.7 g/dL (31.6-35.5); Mean Corpuscular Hemoglobin 29.5 pg (28.0-33.3); Mean Corpuscular Volume 87.5 fL (83.0-100.0); Mean Platelet Volume 8.4 fL (9.4-12.4); Monocytes # 0.8 K/mcL (0.0-1.3); Monocytes % 8.6 %; Neutrophils # 5.9 K/mcL (1.6-8.9); Platelet Count 378 K/mcL (140-400); Red Blood Count 3.29 M/mcL (4.19-5.50); Red Cell Distribution Width 13.2 % (11.5-14.5); Segmented Neutrophils % 62.9 %; White Blood Count 9.4 K/mcL (4.3-11.1)
[2020-09-04 03:34] LABS: BUN/Creatinine Ratio 19 (6-26); Blood Urea Nitrogen 15 mg/dL (8-23); Calcium 8.3 mg/dL (8.6-10.3); Carbon Dioxide 26 mEq/L (23-29); Chloride 94 mEq/L (98-107); Glucose 112 mg/dL (70-105); Osmolality,Calculated 268 (280-300); Potassium 3.8 mEq/L (3.5-5.1); Sodium 128 mEq/L (136-145); eGFR For African Americans > 60 (> 60); eGFR For Non-African Americans > 60 (> 60)
[2020-09-04] MEDS: FLUoxetine 20 MG CAPSULE PO SCH (07:25)
[2020-09-04] MEDS: levETIRAcetam 250 MG TABLET PO SCH ×2 (07:25→21:59)
[2020-09-04] MEDS: Lisinopril-HCTZ 20-12.5mg TABLET PO SCH (07:25)
[2020-09-04] MEDS: Ketorolac 15 MG/ML VIAL IVP PRN ×2 (09:40→18:51)
[2020-09-04] MEDS: Cefepime HCl 2,000 MG in Water for inj. (sterile) 20 ML IVP SCH ×2 (09:40→21:59)
[2020-09-04] MEDS: Budesonide/Formoterol 160/4.5 1 PUFF INH IH SCH ×2 (10:24→20:41)
[2020-09-05 03:16] LABS: Basophils # 0.1 K/mcL (0.0-0.2); Eosinophils # 0.2 K/mcL (0.0-0.6); Eosinophils % 3.4 %; Hematocrit 30.6 % (37.5-50.1); Hemoglobin 10.4 g/dL (12.9-16.9); Immature Granulocytes % 0.7 % (0-4); Lymphocytes # 2.4 K/mcL (0.6-4.6); Lymphocytes % 35.6 %; Mean Corpuscular Hemoglobin 29.9 pg (28.0-33.3); Mean Corpuscular Volume 87.9 fL (83.0-100.0); Mean Platelet Volume 8.5 fL (9.4-12.4); Monocytes # 0.7 K/mcL (0.0-1.3); Monocytes % 10.1 %; Neutrophils # 3.3 K/mcL (1.6-8.9); Platelet Count 381 K/mcL (140-400); Red Blood Count 3.48 M/mcL (4.19-5.50); Red Cell Distribution Width 13.2 % (11.5-14.5); Segmented Neutrophils % 49.2 %; White Blood Count 6.7 K/mcL (4.3-11.1)
[2020-09-05 03:34] LABS: BUN/Creatinine Ratio 18 (6-26); Blood Urea Nitrogen 14 mg/dL (8-23); Calcium 8.9 mg/dL (8.6-10.3); Carbon Dioxide 24 mEq/L (23-29); Chloride 99 mEq/L (98-107); Glucose 101 mg/dL (70-105); Osmolality,Calculated 269 (280-300); Potassium 4.4 mEq/L (3.5-5.1); Sodium 129 mEq/L (136-145); eGFR For African Americans > 60 (> 60); eGFR For Non-African Americans > 60 (> 60)
[2020-09-05] MEDS: FLUoxetine 20 MG CAPSULE PO SCH (07:29)
[2020-09-05] MEDS: Lisinopril-HCTZ 20-12.5mg TABLET PO SCH (07:29)
[2020-09-05] MEDS: levETIRAcetam 250 MG TABLET PO SCH ×2 (07:29→21:31)
[2020-09-05] MEDS: Budesonide/Formoterol 160/4.5 1 PUFF INH IH SCH ×2 (07:38→20:49)
[2020-09-05] MEDS: Ketorolac 15 MG/ML VIAL IVP PRN ×2 (08:54→18:31)
[2020-09-05] MEDS: Cefepime HCl 2,000 MG in Water for inj. (sterile) 20 ML IVP SCH ×2 (08:54→21:30)
[2020-09-05] MEDS: Vancomycin 1,250 MG/262.5 ML IV.SOLN IVPB SCH (18:35)
[2020-09-06] MEDS: Vancomycin 1,250 MG/262.5 ML IV.SOLN IVPB SCH ×2 (05:25→17:24)
[2020-09-06 06:42] LABS: Basophils # 0.1 K/mcL (0.0-0.2); Basophils % 0.8 %; Eosinophils # 0.3 K/mcL (0.0-0.6); Hematocrit 31.4 % (37.5-50.1); Hemoglobin 10.6 g/dL (12.9-16.9); Immature Granulocytes % 0.8 % (0-4); Lymphocytes % 25.6 %; Mean Corpuscular HGB Conc 33.8 g/dL (31.6-35.5); Mean Corpuscular Hemoglobin 29.6 pg (28.0-33.3); Mean Corpuscular Volume 87.7 fL (83.0-100.0); Mean Platelet Volume 8.3 fL (9.4-12.4); Monocytes # 0.8 K/mcL (0.0-1.3); Neutrophils # 4.5 K/mcL (1.6-8.9); Platelet Count 400 K/mcL (140-400); Red Blood Count 3.58 M/mcL (4.19-5.50); Red Cell Distribution Width 13.4 % (11.5-14.5); Segmented Neutrophils % 58.8 %; White Blood Count 7.7 K/mcL (4.3-11.1)
[2020-09-06 06:59] LABS: BUN/Creatinine Ratio 21 (6-26); Blood Urea Nitrogen 15 mg/dL (8-23); Carbon Dioxide 24 mEq/L (23-29); Chloride 99 mEq/L (98-107); Glucose 98 mg/dL (70-105); Osmolality,Calculated 271 (280-300); Potassium 4.2 mEq/L (3.5-5.1); Sodium 130 mEq/L (136-145); eGFR For African Americans > 60 (> 60); eGFR For Non-African Americans > 60 (> 60)
[2020-09-06] MEDS: levETIRAcetam 250 MG TABLET PO SCH ×2 (09:23→20:14)
[2020-09-06] MEDS: Lisinopril-HCTZ 20-12.5mg TABLET PO SCH (09:23)
[2020-09-06] MEDS: FLUoxetine 20 MG CAPSULE PO SCH (09:23)
[2020-09-06] MEDS: Cefepime HCl 2,000 MG in Water for inj. (sterile) 20 ML IVP SCH ×2 (09:23→21:03)
[2020-09-06] MEDS: Budesonide/Formoterol 160/4.5 1 PUFF INH IH SCH ×2 (09:59→20:57)
[2020-09-06 12:31] LABS: C-Reactive Protein 9 mg/L (Less than 10)
[2020-09-06] MEDS: Ketorolac 15 MG/ML VIAL IVP PRN (19:10)
[2020-09-07] MEDS: Vancomycin 1,250 MG/262.5 ML IV.SOLN IVPB SCH (05:21)
[2020-09-07] MEDS: Budesonide/Formoterol 160/4.5 1 PUFF INH IH SCH (08:07)
[2020-09-07] MEDS: Lisinopril-HCTZ 20-12.5mg TABLET PO SCH (08:54)
[2020-09-07] MEDS: levETIRAcetam 250 MG TABLET PO SCH (08:55)
[2020-09-07] MEDS: FLUoxetine 20 MG CAPSULE PO SCH (08:56)
[2020-09-07] MEDS: Cefepime HCl 2,000 MG in Water for inj. (sterile) 20 ML IVP SCH (08:58)
[2020-09-07] MEDS ORDERED: levoFLOXacin 750 MG/150 ML 750 MG/150 ML BAG IVPB SCH (12:45)
[2020-09-07] MEDS: Ketorolac 15 MG/ML VIAL IVP PRN (13:16)
[2020-09-07 15:27] VITALS: BP 120/74
[2020-09-07] MEDS ORDERED: Vancomycin 1,500 MG/265 ML IV.SOLN IVPB SCH (19:00)
== END 2020-09-07 17:59 | DRG 315 ==
LOC: EMEROOARM 16:37 → 3NENU 16:37 → SUATTDRO 09-02 15:30
PROVIDERS: ADMIT Student in an Organized Health Care Education/Training Program; ATTEND Family Medicine